=== PATIENT | female | born 1975 | race Caucasian/White ===

== ENCOUNTER 2022-12-29 10:19 | Outpatient (CLI) | payer BC, SELFPAY | END 2022-12-29 10:20 | disposition home or self-care (01) | PROVIDERS: Visit Provider Nurse Practitioner Family | DX: R30.0 Dysuria (principal); N39.0 Urinary tract infection, site not specified; N89.8 Other specified noninflammatory disorders of vagina | CPT/HCPCS: 87086 ==

== ENCOUNTER 2025-02-14 10:14 | Outpatient (CLI) | payer BC, SELFPAY ==
[2025-02-15 19:16] LABS: HPV Source Cervix; HPV, High Risk by TMA Detected
[2025-02-17 11:25] LABS: HPV Genotype 16 by TMA Not Detected; HPV Genotype 18/45 by TMA Not Detected; HPVG Source Cervix
== END 2025-02-14 10:15 | disposition home or self-care (01) ==
PROVIDERS: Visit Provider Physician Assistant
DX: N92.4 Excessive bleeding in the premenopausal period (principal); Z12.4 Encounter for screening for malignant neoplasm of cervix; Z11.51 Encounter for screening for human papillomavirus (HPV)
CPT/HCPCS: 87624; 87625; 88141; 88142

== ENCOUNTER 2025-02-25 08:20 | Outpatient (CLI) | payer BC, SELFPAY | END 2025-02-25 08:21 | disposition home or self-care (01) | LOC: NFLDREF 02-28 20:36 | PROVIDERS: Visit Provider Physician Assistant | DX: N92.4 Excessive bleeding in the premenopausal period (principal); Z13.6 Encounter for screening for cardiovascular disorders; Z13.1 Encounter for screening for diabetes mellitus; Z13.29 Encounter for screening for other suspected endocrine disorder | CPT/HCPCS: 80061; 82947; 84443 ==

== ENCOUNTER 2025-03-11 09:10 | Outpatient (CLI) | payer BC, SELFPAY ==
--- NOTE | 2025-03-11 09:15 | CRLHL7_ITS ---
For Patients: As a result of the Century Cures Act, medical imaging exams and procedure reports are released immediately into your electronic medical record. You may view this report before your referring provider. If you have questions, please contact your health care provider. INDICATION: Excessive bleeding in the premenopausal period COMPARISON: None. TECHNIQUE: 2D miller-scale and color Doppler images were acquired of the pelvis using a transabdominal and transvaginal approach. Transvaginal imaging performed to better visualize the endometrial stripe and ovaries. FINDINGS: Sonographic images demonstrate a normal size and smooth outer contour of the uterus. Uterus measures 11.6 cm in length by 4.8 cm in AP diameter by 6.1 cm in transverse dimension. The myometrium has a normal uniform echotexture. The endometrial lining measures 4.3 mm in composite thickness. The right ovary measures 2.7 x 2.7 x 2.7 cm in size and the left ovary measures 3.1 x 2.5 x 2.3 cm. The ovaries demonstrate normal arterial and venous blood flow on color Doppler analysis. There are no suspicious fluid collections within the cul-de-sac. Simple circumscribed ovarian cysts are present within each ovary. Left ovarian cyst measures 2.2 x 2.7 x 2.3 cm and right ovarian cyst 2.8 x 2.5 x 2.7 cm. IMPRESSION: Benign simple ovarian cysts bilaterally. Endometrial thickness 4.3 millimeters Dictated by Bulmaro Hargrove MD @ 03/11/2025 10:36:06 AM (Electronically Signed)
== END 2025-03-11 09:11 | disposition home or self-care (01) ==
LOC: US 09:12
PROVIDERS: Visit Provider Physician Assistant
DX: N92.4 Excessive bleeding in the premenopausal period (principal); N83.291 Other ovarian cyst, right side; N83.292 Other ovarian cyst, left side
CPT/HCPCS: 76830; 76856; 93976

== ENCOUNTER 2025-08-18 11:46 | Outpatient (CLI) | payer BC, SELFPAY ==
[2025-08-18 22:51] LABS: Bacterial Vaginosis* Negative (Negative); Candida glab/krus NOT DETECTED (No Detected)
[2025-08-18 23:23] LABS: Chlamydia DNA Amplified* NOT DETECTED (No Detected); GC DNA Amplified* NOT DETECTED (No Detected)
== END 2025-08-18 11:47 | disposition home or self-care (01) ==
PROVIDERS: Visit Provider Registered Nurse
DX: N89.8 Other specified noninflammatory disorders of vagina (principal)
CPT/HCPCS: 81513; 87481; 87491; 87591; 87661

== ENCOUNTER 2025-08-19 09:07 | Outpatient (CLI) | payer BC, SELFPAY | END 2025-08-19 09:08 | disposition home or self-care (01) | PROVIDERS: PCP Family Medicine; Visit Provider Family Medicine | DX: F41.9 Anxiety disorder, unspecified (principal); E66.811 Obesity, class 1; Z68.32 Body mass index [BMI] 32.0-32.9, adult; R42 Dizziness and giddiness; R73.03 Prediabetes; E55.9 Vitamin D deficiency, unspecified | CPT/HCPCS: 80053; 82306; 82728; 84443 ==